=== PATIENT | female | born 1945 | race Caucasian/White ===

== ENCOUNTER 2016-02-29 07:28 | Day surgery (SDC) | payer MEDICARE ==
[2016-02-29] MEDS ORDERED: Lactated Ringers 1,000 ML IV SCH (08:00)
[2016-02-29] MEDS ORDERED: Ak-Dilate OPHTHALMIC*** 0.71 ML, Cyclogyl 1% OPHTH SOL 5 ML 0.71 ML, GATIFLOXACIN 0.5% ... OP ONE ×4 (08:00)
[2016-02-29] MEDS ORDERED: Tetcaine HCl OPHTHALMIC OP ONE ×2 (08:00)
[2016-02-29] MEDS ORDERED: Lactated Ringers 1,000 ML IV ONE (08:19)
[2016-02-29] MEDS ORDERED: Zofran 4 MG/2 ML VIAL IV PRN (09:00)
[2016-02-29] MEDS ORDERED: ACETAZOLAMIDE 250 MG TABLET PO ONE (09:00)
[2016-02-29] MEDS ORDERED: LIDOCAINE HCL 1% AMPUL 5 ML IJ ONE (09:00)
[2016-02-29] MEDS ORDERED: BSS 500 ML, Fortaz/Tazicef 1 GM** 0.2 G IO ONE ×2 (09:00)
[2016-02-29] MEDS ORDERED: Epinephrine Preservative Free 1 MG/ML INTRAOP ONE (09:00)
[2016-02-29] MEDS ORDERED: BETADINE 5% OPHTHALMIC 30 ML OP ONE (09:00)
[2016-02-29] MEDS ORDERED: DIPRIVAN 200 MG/20 ML IV ONE (10:56)
[2016-02-29 11:16] VITALS: BP 154/87; PULSE 77; O2SAT 94
--- NOTE | 2016-02-29 13:13 | OP ---
DATE/TIME OF OPERATION: 02/29/2016 0950 TIME DICTATED: 1107 PREOPERATIVE DIAGNOSIS: Senile cataract of left eye. POSTOPERATIVE DIAGNOSIS: Senile cataract of left eye. SURGEON: Neptali Kathleen MD OPTICAL INSTRUMENT ASSEMBLER: None. OPERATION: Cataract extraction of left eye with an intraocular lens implant. STANDARD __X___ COMPLEX ANESTHESIA: MAC. __X____ Monitored anesthesia care in combination with topical and intra-cameral anesthesia (because of the established specific risk of reflux, arrhythmias, or an anxiety attack associated with ocular manipulation as well as difficulty of the maintenance truck driver to manage such potentially catastrophic events while simultaneously attempting to complete the surgical procedure, it was deemed necessary for the patient's safety to have an anesthesiologist or a nurse gas scrubber operator present during the procedure whenever possible. The anesthesiologist or the nurse gas scrubber operator was utilized to monitor and regulate the intravenous sedation of the patient, so the patient was cooperative, relaxed, and comfortable). Topical anesthesia using Tetracaine eye drops together with intra cameral anesthesia using Lidocaine 1% MPF. The nurse was utilized to monitor the patient. ANESTHESIA PROVIDER: Sanchez Severino CRNA. COMPLICATIONS: None. BLOOD LOSS: None. INDICATIONS: The patient is undergoing cataract surgery in the hopes of eliminating the visual complaints and difficulty. PROCEDURE: After arriving at the facility's outpatient surgery area, an IV was started; the patient was given 5 mg of p.o. Versed. (If an anesthesia provider was not monitoring the patient) The patient was then given topical anesthetic Tetracaine eye drops. A cotton pellet was soaked into a solution of a combination of Zymaxid 0.5%, Javier-Synephrine 2.5% and Ocufen (other drops might have been substituted referenced in the patient's record). The pellet was inserted by the RN into the lower conjunctival cul-de-sac with a sterile forceps and left for 20 minutes. The pellet was then removed by the RN with a sterile forceps before taking the patient to the operating room. The preoperative area nurse identified the patient and marked the correct eye to be operated on. I identified the correct eye to be operated on and marked it appropriately in the outpatient surgery area. The patient was then taken into the operating room. Tetracaine eye drops were installed again in the correct eye. The eyelids and the lashes and the lid margins were scrubbed with Betadine solution. One drop of the diluted Betadine solution was placed in the conjunctival cul-de-sac for 45 seconds and then was irrigated. A drop of Tetracaine Gel was placed in the conjunctival cul-de-sac. The patient's forehead was taped to secure it during the procedure. The patient was monitored. The patient was then draped in the usual way for this procedure. An eye speculum was used to separate the eyelids. The eye was then fixated and a temporal 2.5 mm incision was made in the clear cornea temporally at the limbus. Through the incision, 0.25 cc of 1% non-preserved lidocaine was injected into the anterior chamber for intracameral anesthesia. The anterior chamber was then filled with viscoelastic. The pupil was small. I felt that it would be safer to mechanically dilate the pupil. A Malyugin ring was used at this point which dilated the pupil. That was removed at the end of the procedure prior to aspiration of the viscoelastic from the anterior chamber and posterior to the intraocular lens implant. The cataract had a great amount of cortical changes. That rendered seeing the anterior capsule difficult for a safe performance of an anterior capsulotomy. I injected an air bubble into the anterior chamber. I then injected 1 ML of vision blue solution into the anterior chamber. The vision blue solution was irrigated from the anterior chamber after 30 seconds. The anterior capsule was stained which facilitated performing the anterior capsulotomy safely. After that was completed, a cystotome was introduced into the anterior chamber and a round anterior capsulotomy was performed. The capsule was removed by a forceps. Hydrodissection was next carried utilizing a 25-gauge cannula and balanced salt solution to delineate the cortical material from the capsule and the nucleus from the cortical material. The nucleus was rotated freely into the capsular bag with no difficulty. The phaco tip of the [employer] Phacoemulsifier was introduced into the anterior chamber and two grooves were made into the nucleus 90 degrees apart. Using two spatulas resulted into the nucleus being fractured into four quadrants. The phaco tip was then used to remove each quadrant of the nucleus. Viscoelastic was used during this process to protect the corneal endothelium. Once the entire nucleus was removed, the phaco tip then was removed and the irrigation tip was introduced into the eye and the cortex was removed. The posterior capsule was polished. It was noticed that there was a tear into the posterior capsule with few vitreous strands into the pupil plan. An anterior vitrectomy was performed. A 15.50 diopter, SN60WF, posterior chamber lens implant, was inspected and found to be grossly normal. The implant was inserted into the implant injector cartridge; Viscoelastic again was introduced into the anterior chamber, which filled the capsular bag. The implant injector's cartridge tip was placed at the limbal wound and the posterior chamber implant was released into the capsular bag and rotated appropriately. The implant was found to be into the capsular bag and it was centered. __X___ 0.2 ml of Tri-Moxi was introduced via 27 gauge cannula into the vitreous cavity through the ciliary processes. Viscoelastic was aspirated from the anterior chamber and posterior to the intraocular lens implant from the capsular bag using the irrigating tip. The anterior chamber was irrigated and filled with 5 cc antibiotic solution (500 cc of BSS plus 2 ml of Fortaz 100 mg/ml) ( if patient was not allergic to the medication). The lips of the corneal incision were hydrated using BSS solution. The anterior chamber was checked and found to be water tight. One drop each of antibiotic, steroid and NSAID drops (refer to chart for drops used) were placed in the conjunctival cul-de-sac of the operated eye. Patient tolerated the procedure quite well and left the operating room in satisfactory condition. DISCHARGE SUMMARY: The patient was released in stable condition. The patient and those with the patient were given an instruction sheet as of how to care for the eye after surgery as well as counseling on any abnormal laboratory studies by the postoperative RN. The patient was also given an appointment card for follow-up in the office and is to call immediately for any difficulties including but not limited to pain in the eye, decreased vision, discharge from the eye, headache and or fever. DISCHARGE DIAGNOSIS: Pseudophakia of left eye.
== END 2016-02-29 11:10 | disposition home or self-care (01) ==
LOC: SDC 07:28
PROVIDERS: ATTEND Ophthalmology
PROC: 08RK3JZ Replacement of Left Lens with Synthetic Substitute, Percutaneous Approach (ICD-10-PCS; principal; 2016-02-29)
DX: H25.9 Unspecified age-related cataract (principal); E11.9 Type 2 diabetes mellitus without complications; Z79.4 Long term (current) use of insulin; I10 Essential (primary) hypertension; J44.9 Chronic obstructive pulmonary disease, unspecified; Z85.118 Personal history of other malignant neoplasm of bronchus and lung; M19.90 Unspecified osteoarthritis, unspecified site; E78.00 Pure hypercholesterolemia, unspecified; Z79.899 Other long term (current) drug therapy
CPT/HCPCS: 82962; 66984; C1780; 00142; 99100; J0171; J2704

== ENCOUNTER 2016-05-02 07:14 | Day surgery (SDC) | payer MEDICARE ==
[~2016-05-02 07:14] MED LIST: Lactated Ringers 1,000 ML IV ONE; Lactated Ringers 1,000 ML IV SCH
[2016-05-02] MEDS ORDERED: Lactated Ringers 1,000 ML IV ONE (07:20)
[2016-05-02] MEDS ORDERED: TETRACAINE 0.5% STERI-UNIT SOL OP ONE ×2 (08:00)
[2016-05-02] MEDS ORDERED: Ak-Dilate OPHTHALMIC*** 0.71 ML, Cyclogyl 1% OPHTH SOL 5 ML 0.71 ML, GATIFLOXACIN 0.5% ... OP ONE ×4 (08:00)
[2016-05-02] MEDS ORDERED: Lactated Ringers 1,000 ML IV SCH (08:00)
[2016-05-02] MEDS ORDERED: DIPRIVAN 200 MG/20 ML IV ONE (08:00)
[2016-05-02] MEDS ORDERED: BETADINE 5% OPHTHALMIC 30 ML OP ONE (09:00)
[2016-05-02] MEDS ORDERED: LIDOCAINE HCL 1% AMPUL 5 ML IJ ONE (09:00)
[2016-05-02] MEDS ORDERED: ACETAZOLAMIDE 250 MG TABLET PO ONE (09:00)
[2016-05-02] MEDS ORDERED: Epinephrine Preservative Free 1 MG/ML INTRAOP ONE (09:00)
[2016-05-02] MEDS ORDERED: Zofran 4 MG/2 ML VIAL IV PRN (09:00)
[2016-05-02] MEDS ORDERED: BSS 500 ML, Fortaz/Tazicef 1 GM** 0.2 G IO ONE ×2 (09:00)
[2016-05-02 10:39] VITALS: BP 183/86; PULSE 71; O2SAT 96
--- NOTE | 2016-05-02 13:11 | OP ---
DATE/TIME OF OPERATION: 05/02/2016 0923 TIME DICTATED: 1206 PREOPERATIVE DIAGNOSIS: Senile cataract of right eye. POSTOPERATIVE DIAGNOSIS: Senile cataract of right eye. SURGEON: Neptali Kathleen MD FLEET ADMINISTRATOR: None. OPERATION: Cataract extraction of right eye with an intraocular lens implant STANDARD __X___ COMPLEX ANESTHESIA: MAC. ___X___ Monitored anesthesia care in combination with topical and intra-cameral anesthesia (because of the established specific risk of reflux, arrhythmias, or an anxiety attack associated with ocular manipulation as well as difficulty of the electric razor mechanic to manage such potentially catastrophic events while simultaneously attempting to complete the surgical procedure, it was deemed necessary for the patient's safety to have an anesthesiologist or a nurse medical research tech present during the procedure whenever possible. The anesthesiologist or the nurse medical research tech was utilized to monitor and regulate the intravenous sedation of the patient, so the patient was cooperative, relaxed, and comfortable). Topical anesthesia using Tetracaine eye drops together with intra cameral anesthesia using Lidocaine 1% MPF. The nurse was utilized to monitor the patient. ANESTHESIA PROVIDER: Sanchez Severino CRNA. COMPLICATIONS: None. BLOOD LOSS: None. INDICATIONS: The patient is undergoing cataract surgery in the hopes of eliminating the visual complaints and difficulty. PROCEDURE: After arriving at the facility's outpatient surgery area, an IV was started; the patient was given 5 mg of p.o. Versed. (If an anesthesia provider was not monitoring the patient) The patient was then given topical anesthetic Tetracaine eye drops. A cotton pellet was soaked into a solution of a combination of Zymaxid 0.5%, Javier-Synephrine 2.5% and Ocufen (other drops might have been substituted referenced in the patient's record). The pellet was inserted by the RN into the lower conjunctival cul-de-sac with a sterile forceps and left for 20 minutes. The pellet was then removed by the RN with a sterile forceps before taking the patient to the operating room. The preoperative area nurse identified the patient and marked the correct eye to be operated on. I identified the correct eye to be operated on and marked it appropriately in the outpatient surgery area. The patient was then taken into the operating room. Tetracaine eye drops were installed again in the correct eye. The eyelids and the lashes and the lid margins were scrubbed with Betadine solution. One drop of the diluted Betadine solution was placed in the conjunctival cul-de-sac for 45 seconds and then was irrigated. A drop of Tetracaine Gel was placed in the conjunctival cul-de-sac. The patient's forehead was taped to secure it during the procedure. The patient was monitored. The patient was then draped in the usual way for this procedure. An eye speculum was used to separate the eyelids. The eye was then fixated and a temporal 2.5 mm incision was made in the clear cornea temporally at the limbus. Through the incision, 0.25 cc of 1% non-preserved lidocaine was injected into the anterior chamber for intracameral anesthesia. The anterior chamber was then filled with viscoelastic. The pupil was small. I felt that it would be safer to mechanically dilate the pupil. A Malyugin ring was used at this point which dilated the pupil. That was removed at the end of the procedure prior to aspiration of the viscoelastic from the anterior chamber and posterior to the intraocular lens implant. The cataract had a great amount of cortical changes. That rendered seeing the anterior capsule difficult for a safe performance of an anterior capsulotomy. I injected an air bubble into the anterior chamber. I then injected 1 ML of vision blue solution into the anterior chamber. The vision blue solution was irrigated from the anterior chamber after 30 seconds. The anterior capsule was stained which facilitated performing the anterior capsulotomy safely. After that was completed, a cystotome was introduced into the anterior chamber and a round anterior capsulotomy was performed. The capsule was removed by a forceps. Hydrodissection was next carried utilizing a 25-gauge cannula and balanced salt solution to delineate the cortical material from the capsule and the nucleus from the cortical material. The nucleus was rotated freely into the capsular bag with no difficulty. The phaco tip of the [employer] Phacoemulsifier was introduced into the anterior chamber and two grooves were made into the nucleus 90 degrees apart. Using two spatulas resulted into the nucleus being fractured into four quadrants. The phaco tip was then used to remove each quadrant of the nucleus. Viscoelastic was used during this process to protect the corneal endothelium. Once the entire nucleus was removed, the phaco tip then was removed and the irrigation tip was introduced into the eye and the cortex was removed. The posterior capsule was polished. It was noticed that there was a tear into the posterior capsule with few vitreous strands into the pupil plan. An anterior vitrectomy was performed. A 16.00 diopter, SN60WF, posterior chamber lens implant, was inspected and found to be grossly normal. The implant was inserted into the implant injector cartridge; Viscoelastic again was introduced into the anterior chamber, which filled the capsular bag. The implant injector's cartridge tip was placed at the limbal wound and the posterior chamber implant was released into the capsular bag and rotated appropriately. The implant was found to be into the capsular bag and it was centered. ___X__ 0.2 ml of Tri-Moxi was introduced via 27 gauge cannula into the vitreous cavity through the ciliary processes. Viscoelastic was aspirated from the anterior chamber and posterior to the intraocular lens implant from the capsular bag using the irrigating tip. The anterior chamber was irrigated and filled with 5 cc antibiotic solution (500 cc of BSS plus 2 ml of Fortaz 100 mg/ml) ( if patient was not allergic to the medication). The lips of the corneal incision were hydrated using BSS solution. The anterior chamber was checked and found to be water tight. One drop each of antibiotic, steroid and NSAID drops (refer to chart for drops used) were placed in the conjunctival cul-de-sac of the operated eye. Patient tolerated the procedure quite well and left the operating room in satisfactory condition. DISCHARGE SUMMARY: The patient was released in stable condition. The patient and those with the patient were given an instruction sheet as of how to care for the eye after surgery as well as counseling on any abnormal laboratory studies by the postoperative RN. The patient was also given an appointment card for follow-up in the office and is to call immediately for any difficulties including but not limited to pain in the eye, decreased vision, discharge from the eye, headache and or fever. DISCHARGE DIAGNOSIS: Pseudophakia of right eye.
== END 2016-05-02 10:46 | disposition home or self-care (01) ==
LOC: SDC 07:14
PROVIDERS: ATTEND Ophthalmology
PROC: 08RJ3JZ Replacement of Right Lens with Synthetic Substitute, Percutaneous Approach (ICD-10-PCS; principal; 2016-05-02)
DX: H25.9 Unspecified age-related cataract (principal); E78.00 Pure hypercholesterolemia, unspecified; E11.9 Type 2 diabetes mellitus without complications; Z79.4 Long term (current) use of insulin; J44.9 Chronic obstructive pulmonary disease, unspecified; M19.90 Unspecified osteoarthritis, unspecified site; I10 Essential (primary) hypertension; Z79.899 Other long term (current) drug therapy
CPT/HCPCS: 66984; C1780; 00142; 99100; J0171; J2704; A9270-GY

== ENCOUNTER 2019-03-29 14:30 | Emergency (ER) | payer MEDICARE ==
[2019-03-29] MEDS ORDERED: Hydromorphone 1 mg/ml Ampule IV ONE (14:34)
[2019-03-29] MEDS ORDERED: Sodium Chloride 0.9% 1000 ML 1,000 ML ONE (14:37)
[2019-03-29] MEDS ORDERED: Hydromorphone 1 mg/ml Ampule ONE (14:37)
[2019-03-29] MEDS ORDERED: Sodium Chloride 0.9% 1000 ML 1,000 ML IV SCH (14:45)
--- NOTE | 2019-03-29 15:18 | ERPHSYRPT ---
- History of Present Illness Time Seen by Provider: 03/29/19 14:40 Source: patient Patient Subjective Stated Complaint: Pt was walking with a walker and fell and landed on her left shoulder which appears to be dislocated Triage Nursing Assessment: Pt brought to the ER by EMS, hypertensive, rates pain 09/21, left shoulder appears dislocated, denies any other injuries, denies losing consciousness, pulses normal, capillary refill normal Physician History: Patient is a 73-year-old female who was walking with a walker at hallway and fell to the left injuring her left shoulder Occurred: just prior to arrival Reason for Fall: unknown Injuries/Pain Location: upper extremity (Left shoulder) Loss of Consciousness: no loss of consciousness Allergies/Adverse Reactions: No Known Drug Allergies Allergy (Verified 03/29/19 14:39) Home Medications: Albuterol Sulfate [Proair Hfa] 2 puff IH Q4-6HPRN PRN 12/01/15 [History] Atenolol 50 mg [Tenormin 50 mg] 100 mg PO DAILY 12/01/15 [History] Celecoxib 100 mg [celeBREX 100 MG] 200 mg PO DAILY 12/01/15 [History] Metformin HCl 1000 mg [Glucophage 1000 MG] 1,000 mg PO BID 12/01/15 [History] Simvastatin 20 mg PO QPM 12/01/15 [History] Fluticasone/Vilanterol [Breo Ellipta 100-25 Mcg INH] 2 puff IH QID 02/29/16 [ History] Alendronate Sodium 70 mg PO WEEKLY 03/29/19 [History] Gabapentin 600 mg PO BID 03/29/19 [History] Hydrocodone Bit/Acetaminophen [Hydrocodon-Acetaminophn 10-325] 1 tab PO QID [History] Hx Tetanus, Diphtheria Vaccination/Date Given: No Hx Influenza Vaccination/Date Given: No Hx Pneumococcal Vaccination/Date Given: Yes - Review of Systems Constitutional: No Fever, No Chills Eyes: No Symptoms Ears, Nose, & Throat: No Symptoms Respiratory: No Cough, No Dyspnea Cardiac: No Chest Pain, No Edema, No Syncope Abdominal/Gastrointestinal: No Abdominal Pain, No Nausea, No Vomiting, No Diarrhea Genitourinary Symptoms: No Dysuria Musculoskeletal: Joint Pain, Joint Swelling, No Back Pain, No Neck Pain Skin: No Rash Neurological: No Dizziness, No Focal Weakness, No Sensory Changes Psychological: No Symptoms Endocrine: No Symptoms All Other Systems: Reviewed and Negative - Past Medical History Pertinent Past Medical History: Yes Neurological History: Migraines ENT History: Cataracts Cardiac History: High Cholesterol, Hypertension Respiratory History: COPD, Lung Cancer Endocrine Medical History: Diabetes Type II Musculoskeletal History: Degenerative Disk Disease, Osteoarthritis GI Medical History: No Pertinent History History: No Pertinent History Psycho-Social History: No Pertinent History Female Reproductive Disorders: No Pertinent History Other Medical History: chronic back pain - Past Surgical History Past Surgical History: Yes Neuro Surgical History: No Pertinent History Cardiac: No Pertinent History Respiratory: No Pertinent History Gastrointestinal: No Pertinent History Genitourinary: No Pertinent History Musculoskeletal: Other Female Surgical History: No Pertinent History Other Surgical History: benign tumor removed from the back, right lung bx,right lung cancer hx - Social History Smoking Status: Current every day smoker Exposure to second hand smoke: Yes Drug Use: none Patient Lives Alone: Yes - Female History Hx Now: No - Nursing Vital Signs Nursing Vital Signs: Initial Vital Signs Temperature 97.3 F 03/29/19 14:31 Pulse Rate 59 L 03/29/19 14:31 Blood Pressure 164/70 03/29/19 14:31 O2 Sat by Pulse Oximetry 96 03/29/19 14:31 Pain Scale Pain Intensity 8 - Favian Coma Score Best Eye Response ([place]): (4) open spontaneously Best Verbal Response (Favian): (5) oriented Best Motor Response (Favian): (6) obeys commands Favian Total: 15 - Physical Exam Extremity Exam: deformities, pain with movement Peripheral Pulses: carotid (R): 2+, carotid (L): 2+ Neurologic Exam: alert, oriented x 3, cooperative, sensation nml, No motor deficits SpO2 Interpretation: normal SpO2: 96 O2 Delivery: Room Air - Course Nursing assessment & vital signs reviewed: Yes Ordered Tests: Active Orders 24 hr Category Date Time Status IV Insertion STAT Care 03/29/19 14:35 Active SHOULDER Stat Exams 03/29/19 14:47 Taken Medication Summary Generic Name Dose Route Start Last Admin Trade Name Freq PRN Reason Stop Dose Admin Sodium Chloride 1,000 mls @ 100 mls/hr 03/29/19 14:45 03/29/19 14:39 Sodium Chloride 0.9% 1000 Ml IV 04/28/19 14:44 100 mls/hr .Q10H SHITAL Administration Discontinued Medications Generic Name Dose Route Start Last Admin Trade Name Freq PRN Reason Stop Dose Admin Hydromorphone HCl 0.5 mg 03/29/19 14:34 03/29/19 14:39 Hydromorphone 1 Mg/Ml Ampule IV 03/29/19 14:35 0.5 mg STAT ONE Administration Hydromorphone HCl Confirm 03/29/19 14:37 Hydromorphone 1 Mg/Ml Ampule Administered 03/29/19 14:38 Dose 1 mg .ROUTE .STK-MED ONE - Progress Progress: unchanged - Departure Departure Disposition: Transfer (There is a fracture of the proximal left humerus which is overriding comminuted and displaced patient is being transferred to [facility] since we have no orthopedic service available. Left shoulder) Clinical Impression: Shoulder fracture, left Condition: Stable Critical Care Time: No Referrals: COY BROCK MD [Primary Care Provider] -
[2019-03-29 15:23] VITALS: BP 159/63; PULSE 60; O2SAT 98
--- NOTE | 2019-03-29 18:16 | XRAY ---
Indication: Pain/deformity following fall. Comparison: None 3 views of the left shoulder demonstrates comminuted proximal humeral shaft fracture with bayonet apposition/alignment and soft tissue swelling. Elsewhere mild osteopenia and mild multilevel degenerative spondylosis. No other bony, articular, or soft tissue abnormalities.
== END 2019-03-29 15:45 | disposition short-term general hospital (02) ==
LOC: ED 14:30
DX: S42.92XA Fracture of left shoulder girdle, part unspecified, initial encounter for closed fracture (principal); W17.89XA Other fall from one level to another, initial encounter; Z79.899 Other long term (current) drug therapy; Z79.891 Long term (current) use of opiate analgesic; E78.00 Pure hypercholesterolemia, unspecified; I10 Essential (primary) hypertension; E11.9 Type 2 diabetes mellitus without complications
CPT/HCPCS: 36000; 73030; 96360; 96374; 99285; J1170

== ENCOUNTER 2019-08-22 17:37 | Emergency (ER) | payer MEDICARE ==
[2011-10-18 09:50] VITALS: BP 176/98
[2019-08-22] MEDS ORDERED: ATROPINE SULFATE 1MG SYR ABBOJECT IV ONE (17:38)
[2019-08-22] MEDS ORDERED: EPINEPHRINE ABBOJECT 1 MG IV ONE ×2 (17:38)
[2019-08-22 17:56] VITALS: O2SAT 98
[2019-08-22 17:59] LABS: Hematocrit 35.5 % (35-47); Hemoglobin 10.4 gm/dl (12.0-16.0); Mean Corpuscular Hemoglobin 25.2 pg (26-32); Mean Corpuscular Hgb Concent. 29.3 g/dl (32-36); Mean Platelet Volume 9.5 fl (7.5-11.0); Platelet Count 384 K/mm3 (150-450); Red Blood Count 4.13 M/mm3 (4.1-5.4); Red Cell Distribution Width 18.3 % (11.5-14.0)
--- NOTE | 2019-08-22 17:59 | ERPHSYRPT ---
- History of Present Illness Time Seen by Provider: 08/22/19 17:40 Source: family, EMS Exam Limitations: clinical condition Physician History: This is a patient in her 70s that was brought in by EMS in cardiopulmonary arrest. Patient was awake approximately 30 minutes prior to arrival to the emergency department. Patient has history of cardiopulmonary disease. She has pain issues and had a fentanyl patch in place. Approximately 30 minutes prior to the arrival to this emergency department, patient took Vicodin for pain. She then became unresponsive. EMS arrived to the patient's home where the patient was found to be unresponsive, without spontaneous heart tones, without spontaneous breath sounds and no pulse. CPR was started immediately and orotracheally intubated at the scene. Patient was asystole throughout the EMS transport. Patient was given 3 rounds of epinephrine and continuous CPR. Patient arrives to the emergency department unresponsive, pupils were dilated and fixed, no spontaneous heart tones, no spontaneous breath sounds and no pulse. Upon arrival to the emergency department we do not have significant amount of information on this patient. Timing/Duration: today Activities at Onset: none Severity of Pain-Max: none Severity of Pain-Current: none Modifying Factors: Improves With: nothing Nitro Today/Relief: no nitro taken today Aspirin Treatment Today: no aspirin today Associated Symptoms: other (Patient unresponsive) Allergies/Adverse Reactions: No Known Drug Allergies Allergy (Unverified 08/22/19 18:19) Home Medications: Unobtainable 08/22/19 [History] Travel Risk - International Travel Have you traveled outside of the country in past 3 weeks: No - Coronavirus Screening Are you exhibiting any of the following symptoms?: No Close contact with a COVID-19 positive Pt in past 14-21 Days: No - Review of Systems Constitutional: Other (Patient unresponsive) Eyes: Other (Patient unresponsive) Respiratory: Other (Patient unresponsive) Cardiac: Other Abdominal/Gastrointestinal: Other (Patient unresponsive) Genitourinary Symptoms: Other (Patient unresponsive) Musculoskeletal: Other Skin: Other (Patient unresponsive patient unresponsive) Neurological: Other Psychological: Other (Patient unresponsive patient unresponsive) Endocrine: Other (Patient unresponsive) Hematologic/Lymphatic: Other (Patient unresponsive) Immunological/Allergic: Other (Patient unresponsive this because of think he is or things that the patient after but) All Other Systems: Unable due to condition - Past Medical History Pertinent Past Medical History: Yes - Past Surgical History Past Surgical History: Yes - Nursing Vital Signs Nursing Vital Signs: Initial Vital Signs O2 Sat by Pulse Oximetry 98 08/22/19 17:55 - Physical Exam General Appearance: cachetic, other (And unresponsive) Eye Exam: other (Pupils fixed and dilated without response to light examination) Ears, Nose, Throat Exam: other (Patient orotracheally intubated) Neck Exam: normal inspection, non-tender, supple, full range of motion Respiratory Exam: other (No spontaneous breath sounds) Cardiovascular Exam: other (No spontaneous heart tones) Gastrointestinal/Abdomen Exam: soft, other (Quiet) Pelvic Exam: not done Rectal Exam: not done Back Exam: normal inspection, normal range of motion, No CVA tenderness, No vertebral tenderness Extremity Exam: pelvis stable Neurologic Exam: other (Patient unresponsive) Skin Exam: mottled Lymphatic Exam: No adenopathy SpO2 Interpretation: hypoxic O2 Delivery: Ambu-Bag - Course Nursing assessment & vital signs reviewed: Yes EKG Interpreted by Me: RATE ([id number]), Sinus Tach, Right Bundle Branch Block, Non- specific ST Changes, Other (Ectopic atrial tachycardia, unifocal. There is multiple ventricular premature complexes.) Ordered Tests: Active Orders 24 hr Category Date Time Status CO2 Monitoring STAT Care 08/22/19 17:48 Active Fixed Wing Pilot STAT Care 08/22/19 17:49 Active Catheter-[place] Mix STAT Care 08/22/19 17:51 Active EKG-ER Only STAT Care 08/22/19 17:48 Active Gastric Tube Insertion STAT Care 08/22/19 18:03 Active Pulse Oximetry (ED) STAT Care 08/22/19 17:48 Active CHEST 1 VIEW (PORTABLE) Stat Exams 08/22/19 17:49 Taken ABG [ARTERIAL BLOOD GASES] Stat Lab 08/22/19 19:05 Completed ARTERIAL BLOOD GASES Urgent Lab 08/22/19 18:02 Completed CBC W DIFF Stat Lab 08/22/19 17:40 Completed CMP Stat Lab 08/22/19 17:40 Completed CULTURE,URINE Stat Lab 08/22/19 19:17 Received Lactic Acid Urgent Lab 08/22/19 18:02 Completed Manual Differential NC Stat Lab 08/22/19 17:40 Completed Sputum Culture [CULTURE,SPUTUM] Stat Lab 08/22/19 Uncollected TROPONIN Q3H Lab 08/22/19 18:08 Completed TROPONIN Q3H Lab 08/22/19 21:00 Ordered UA W/RFX UR CULTURE Stat Lab 08/22/19 19:17 Received Urine Triage Profile Stat Lab 08/22/19 19:17 Received Standby STAT RT 08/22/19 18:19 Completed Medication Summary Generic Name Dose Route Start Last Admin Trade Name Ashkan PRN Reason Stop Dose Admin Norepinephrine 4,000 mcg/ 504 mls @ 37.8 mls/hr 08/22/19 18:14 08/22/19 18:54 Dextrose IV 09/21/19 18:13 5 mcg/min .[id number] PRN 37.8 mls/hr SEVERE HYPOTENSION Administration Protocol 5 MCG/MIN Midazolam HCl 50 mg/ Sodium 250 mls @ 10 mls/hr 08/22/19 18:55 Chloride IV 09/21/19 18:54 .Q24H PRN SEDATION Protocol 2 MG/HR Discontinued Medications Generic Name Dose Route Start Last Admin Trade Name Ashkan PRN Reason Stop Dose Admin Calcium Gluconate Confirm 08/22/19 18:27 Calcium Gluconate 10% 1000 Mg Administered 08/22/19 18:28 Dose 1,000 mg IV .STK-MED ONE Dextrose 50 ml 08/22/19 18:57 D50w 50 Ml Abboject IV 08/22/19 18:58 STAT ONE Dextrose Confirm 08/22/19 19:00 D50w 50 Ml Abboject Administered 08/22/19 19:01 Dose 50 ml IV .STK-MED ONE Sodium Chloride Confirm 08/22/19 18:05 Sodium Chloride 0.9% 1000 Ml Administered 08/22/19 18:06 Dose 1,000 mls @ ud .ROUTE .STK-MED ONE Meropenem 1 g/ Sodium Chloride 100 mls @ 200 mls/hr 08/22/19 18:16 08/22/19 18:54 IV 08/22/19 18:45 200 mls/hr STAT ONE Administration Sodium Chloride Confirm 08/22/19 18:33 Sodium Chloride 100ml Mini-Bag Plus Administered 08/22/19 18:34 Dose 100 mls @ ud IV .STK-MED ONE Sodium Chloride Confirm 08/22/19 18:59 Sodium Chloride 0.9% 250 Ml Administered 08/22/19 19:00 Dose 250 mls @ ud IV .STK-MED ONE Insulin Human Regular 4 unit 08/22/19 18:57 Humulin R IV 08/22/19 18:58 STAT ONE Insulin Human Regular Confirm 08/22/19 18:59 Humulin R Administered 08/22/19 19:00 Dose 4 unit .ROUTE .STK-MED ONE Meropenem Confirm 08/22/19 18:33 Merrem 1 Gm Administered 08/22/19 18:34 Dose 1 g IV .STK-MED ONE Midazolam HCl 2 mg 08/22/19 18:55 Versed 2 Mg/2 Ml Injection IV 08/22/19 18:56 1XONLY ONE Midazolam HCl Confirm 08/22/19 18:59 Versed 50 Mg/ 10 Ml Mdv Administered 08/22/19 19:00 Dose 50 mg .ROUTE .STK-MED ONE Sodium Bicarbonate 50 meq 08/22/19 18:14 08/22/19 18:54 Sodium Bicarbonate 50 Meq/50 Ml Abboject IV 08/22/19 18:15 50 meq STAT ONE Administration Sodium Bicarbonate Confirm 08/22/19 18:39 Sodium Bicarbonate 50 Meq/50 Ml Abboject Administered 08/22/19 18:40 Dose 50 meq IV .STK-MED ONE Lab/Rad Data: Laboratory Result Diagrams 08/22/19 17:40 08/22/19 17:40 Laboratory Results 08/22/19 08/22/19 08/22/19 Range/Units 19:05 18:08 18:02 WBC (4.0-10.5) K/mm3 RBC (4.1-5.4) M/mm3 Hgb (12.0-16.0) gm/dl Hct (35-47) % MCV (78-100) fl MCH (26-32) pg MCHC (32-36) g/dl RDW (11.5-14.0) % Plt Count (150-450) K/mm3 MPV (7.5-11.0) fl Segmented Neutrophils (36.0-66.0) % Lymphocytes (Manual) (24-44) % Monocytes (Manual) (0.0-12.0) % Platelet Estimate (NORMAL) RBC Morphology Anisocytosis Puncture Site RIGHT RADIAL VBG pCO2 83 H* 43 (35-45) mmHg pO2 194 H* 76 (75-100) mmHg Base Excess -6.5 L -12.4 L (-2.0-2.0) O2 Saturation 98.0 87.9 L (94-100) g/dF ABG pH 7.09 L* 7.17 L* (7.35-7.45) ABG HCO3 25.2 15.7 L* (22-28) ABG O2 Sat (Measured) 100.0 97.2 (95-100) % Sajan Test NOT APPLICABLE NOT APPLICABLE A-a Gradient 415 583 a/A Ratio 0.32 0.12 Hemoglobin 9.9 10.5 Carboxyhemoglobin 1.4 9.1 H* (0.0-6.9) % THgb Methemoglobin 0.6 L 0.5 L (1.4-1.5) % Temperature 37.0 37.0 C POC O2 Flow Rate 100 100 % Vent Mode A/C A/C Tidal Volume 400 400 cc PEEP 3.0 3.0 cmH2O Sodium (137-145) mmol/L Potassium 5.0 5.8 H (3.5-5.1) mmol/L Chloride (98-107) mmol/L Carbon Dioxide (22-30) mmol/L Anion Gap (5-15) MEQ/L BUN (7-17) mg/dL Creatinine (0.52-1.04) mg/dL Estimated GFR ML/MIN Glucose (74-106) mg/dL Lactic Acid 7.0 H (0.4-2.0) Calcium (8.4-10.2) mg/dL Total Bilirubin (0.2-1.3) mg/dL AST (14-36) U/L ALT (0-35) U/L Alkaline Phosphatase (38-126) U/L Troponin I 0.686 H* (0.000-0.034) ng/mL Serum Total Protein (6.3-8.2) g/dL Albumin (3.5-5.0) g/dL 08/22/19 08/22/19 Range/Units 17:40 17:40 WBC 29.6 H* (4.0-10.5) K/mm3 RBC 4.13 (4.1-5.4) M/mm3 Hgb 10.4 L (12.0-16.0) gm/dl Hct 35.5 (35-47) % MCV 86.0 (78-100) fl MCH 25.2 L (26-32) pg MCHC 29.3 L (32-36) g/dl RDW 18.3 H (11.5-14.0) % Plt Count 384 (150-450) K/mm3 MPV 9.5 (7.5-11.0) fl Segmented Neutrophils 91 H (36.0-66.0) % Lymphocytes (Manual) 6 L (24-44) % Monocytes (Manual) 3 (0.0-12.0) % Platelet Estimate NORMAL (NORMAL) RBC Morphology ABNORMAL Anisocytosis 1+ Puncture Site pCO2 (35-45) mmHg pO2 (75-100) mmHg Base Excess (-2.0-2.0) O2 Saturation (94-100) g/dF ABG pH (7.35-7.45) ABG HCO3 (22-28) ABG O2 Sat (Measured) (95-100) % Sajan Test A-a Gradient a/A Ratio Hemoglobin Carboxyhemoglobin (0.0-6.9) % THgb Methemoglobin (1.4-1.5) % Temperature C POC O2 Flow Rate % Vent Mode Tidal Volume cc PEEP cmH2O Sodium 132 L (137-145) mmol/L Potassium 7.1 H* (3.5-5.1) mmol/L Chloride 94 L (98-107) mmol/L Carbon Dioxide 22 (22-30) mmol/L Anion Gap 22.8 H (5-15) MEQ/L BUN 69 H (7-17) mg/dL Creatinine 1.88 H (0.52-1.04) mg/dL Estimated GFR 27.7 ML/MIN Glucose 165 H (74-106) mg/dL Lactic Acid (0.4-2.0) Calcium 9.8 (8.4-10.2) mg/dL Total Bilirubin 0.50 (0.2-1.3) mg/dL AST 34 (14-36) U/L ALT 17 (0-35) U/L Alkaline Phosphatase 89 (38-126) U/L Troponin I (0.000-0.034) ng/mL Serum Total Protein 7.2 (6.3-8.2) g/dL Albumin 3.3 L (3.5-5.0) g/dL - Progress Progress: improved Air Movement: fair Progress Note: 08/22/19 18:45 Second EKG at 5:54 PM after 1 amp of bicarb and 2 rounds of epinephrine intravenously, heart rate is 124 still in sinus tachycardia. Persistent ventricular premature complexes. There is right bundle april block. Third EKG at 5:59 PM heart rate 139 still with sinus tachycardia right bundle branch block persists. There appears to be ST elevation in leads II and III. The patient has received a third intravenous epinephrine and a second intravenous bicarb Fourth EKG after a total of three 1 mg intravenous epinephrine, 2 A of bicarb, 10 mL of calcium gluconate, 2 L of intravenous cold normal saline and Levophed 8 mics intravenously the patient's heart rate is 104 there is atrial fibrillation with a right bundle branch block. There is possibly acute anterior infarct present. Medical decision making: This patient was on hospice for pain control per family friend. This family friend states that the patient is on morphine, Vicodin and fentanyl patch. In the last 2 or 3 days the patient has not been tracking well. The patient has right lung cancer that is significant. The CAT scan of the chest dated May 09, 2016 showed a very large right-sided lung mass with presumed lung cancer. 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 No evidence of left-sided infiltrate. Her friend, who administers her medication, states that she also has an adrenal mass that her physicians were in the process of starting work-up for. The patient was hypotensive and she has received cold fluids post code arrest protocol. She has a potassium of 7.1 and we have given the patient sodium bicarb calcium gluconate and fluid. We will give an amp of D50 as well. The CODE STATUS is still unknown. She has no known family. She has a good friend who we spoke briefly to to obtain some health information but she is not the power of trust and estates attorney. Patient has a history of significant COPD and is diabetic. She is on Celebrex simvastatin [place], fentanyl patch and morphine. Our plan is to stabilize her and then transfer her to [facility]. Fifth EKG was performed at 649pm: Heart rate is 92 patient is in sinus rhythm there is right bundle branch block and fascicular block on the left side. There is resolution of the elevation of the ST segment in the anterior leads. Okay so put on a Versed drip 08/22/19 19:[address] Jara in the emergency department at [facility]. I reviewed the patient history, condition, laboratory results, EKG results and results of the patient's chest x-ray. The patient is now stabilized reasonably enough to transport this patient to Dr. Jara. He accepts the patient in transfer. Blood Culture(s) Obtained: No Antibiotics given: Yes Counseled pt/family regarding: diagnosis - Departure Departure Disposition: Transfer Clinical Impression: Cardiopulmonary arrest with successful resuscitation, Hyperkalemia, Leukocytosis, Sepsis, Elevated troponin Condition: Critical Critical Care Time: Yes Critical Care Time(excluding separately billable procedures): Critical 75-104 mins Referrals: COY BROCK MD [Primary Care Provider] -
[2019-08-22] MEDS ORDERED: Sodium Chloride 0.9% 1000 ML 1,000 ML ONE (18:05)
[2019-08-22 18:10] LABS: White Blood Count 29.6 K/mm3 (4.0-10.5)
[2019-08-22 18:10] LABS: A-aADO2 583; ABG HEMOGLOBIN 10.5; ABG POTASSIUM 5.8 (3.5-5.1); ARTERIAL BLD GAS O2 SATURATION 97.2 % (95-100); ARTERIAL BLOOD GAS BASE EXCESS -12.4 (-2.0-2.0); ARTERIAL BLOOD GAS FIO2 100 %; ARTERIAL BLOOD GAS PCO2 43 mmHg (35-45); ARTERIAL BLOOD GAS PO2 76 mmHg (75-100); ARTERIAL BLOOD GAS VENT MODE A/C; HCO3- 15.7 (22-28); HGB O2 SAT 87.9 g/dF (94-100); Methhemoglobin 0.5 % (1.4-1.5); paO2 pAO1 0.12
[2019-08-22 18:11] LABS: ABG SITE VBG; ARTERIAL BLOOD GAS pH 7.17 (7.35-7.45); CARBOXYHEMOGLOBIN 9.1 % THgb (0.0-6.9)
[2019-08-22] MEDS ORDERED: LEVOPHED 4 MG/4 ML 4,000 MCG in Dextrose 5%/Water IV Soln. 500 ML 500 ML IV PRN (18:14)
[2019-08-22] MEDS ORDERED: SODIUM BICARBONATE 50 MEQ/50 ML ABBOJECT IV ONE ×2 (18:14→18:39)
[2019-08-22] MEDS ORDERED: Merrem 1 GM 1 G in Sodium Chloride 100ML MINI-BAG PLUS 100 ML IV ONE (18:16)
[2019-08-22 18:22] LABS: ALBUMIN 3.3 g/dL (3.5-5.0); ANION GAP 22.8 MEQ/L (5-15); BILIRUBIN,TOTAL 0.5 mg/dL (0.2-1.3); Calcium 9.8 mg/dL (8.4-10.2); Creatinine 1 1.88 mg/dL (0.52-1.04); Total Protein 7.2 g/dL (6.3-8.2)
[2019-08-22 18:27] LABS: Potassium 7.1 mmol/L (3.5-5.1)
[2019-08-22] MEDS ORDERED: Calcium Gluconate 10% 1000 MG IV ONE (18:27)
[2019-08-22] MEDS ORDERED: Merrem 1 GM IV ONE (18:33)
[2019-08-22] MEDS ORDERED: Sodium Chloride 100ML MINI-BAG PLUS 100 ML IV ONE (18:33)
[2019-08-22 18:47] LABS: Lymphocytes 6 % (24-44); Monocyte 3 % (0.0-12.0); Neutrophils 91 % (36.0-66.0); Total Cells Counted 100
[2019-08-22 18:50] LABS: Platelet Estimate NORMAL (NORMAL)
[2019-08-22 18:51] LABS: ANISOCYTOSIS 1+
[2019-08-22] MEDS ORDERED: Versed 2 MG/2 ML Injection IV ONE (18:55)
[2019-08-22] MEDS ORDERED: Versed 50 MG/ 10 Ml MDV*** 50 MG in Sodium Chloride 0.9% 250 ML 240 ML IV PRN (18:55)
[2019-08-22] MEDS ORDERED: D50W 50 ml Abboject IV ONE ×2 (18:57→19:00)
[2019-08-22] MEDS ORDERED: HUMULIN R IV ONE (18:57)
[2019-08-22] MEDS ORDERED: Sodium Chloride 0.9% 250 ML 250 ML IV ONE (18:59)
[2019-08-22] MEDS ORDERED: Versed 50 MG/ 10 Ml MDV ONE (18:59)
[2019-08-22] MEDS ORDERED: HUMULIN R ONE (18:59)
[2019-08-22 19:17] LABS: A-aADO2 415; ABG HEMOGLOBIN 9.9; ARTERIAL BLOOD GAS BASE EXCESS -6.5 (-2.0-2.0); ARTERIAL BLOOD GAS FIO2 100 %; ARTERIAL BLOOD GAS PO2 194 mmHg (75-100); ARTERIAL BLOOD GAS VENT MODE A/C; CARBOXYHEMOGLOBIN 1.4 % THgb (0.0-6.9); HCO3- 25.2 (22-28); Methhemoglobin 0.6 % (1.4-1.5); paO2 pAO1 0.32
[2019-08-22 19:18] LABS: ABG SITE RIGHT RADIAL; ARTERIAL BLOOD GAS PCO2 83 mmHg (35-45); ARTERIAL BLOOD GAS pH 7.09 (7.35-7.45)
[2019-08-22 19:29] LABS: Appearance TURBID (CLEAR); Bacteria MANY /HPF (NEGATIVE); Bilirubin NEGATIVE (NEGATIVE); Blood SMALL Ery/ul (0-5); Epithelial Cells RARE /HPF (FEW); Glucose NEGATIVE (NEGATIVE); Ketones NEGATIVE (NEGATIVE); Leukocyte Esterase MODERATE (NEGATIVE); Mucus SLIGHT /HPF (NEGATIVE); Nitrite NEGATIVE (NEGATIVE); Non-Squamous Epithelial Cells RARE /HPF (FEW); Protein,Urine Dip 30 (Negative); RBC 26-50 /HPF (0-2); Specific Gravity 1.021 (1.005-1.025); Urobilinogen NEGATIVE mg/dL (0-1); WBC >100 /HPF (0-5)
[2019-08-22 19:37] LABS: Amphetamine,Urine NEGATIVE (NEGATIVE); Barbiturate,Urine NEGATIVE (NEGATIVE); Benzodiazepine,Urine NEGATIVE (NEGATIVE); Cocaine,Urine NEGATIVE (NEGATIVE); Methadone,Urine NEGATIVE (NEGATIVE); Opiate,Urine POSITIVE (NEGATIVE); PCP,Urine NEGATIVE (NEGATIVE); THC,Urine NEGATIVE (NEGATIVE)
[2019-08-22 19:46] LABS: ANION GAP 18.2 MEQ/L (5-15); Calcium 8.8 mg/dL (8.4-10.2); Creatinine 1 1.99 mg/dL (0.52-1.04); Potassium 5.4 mmol/L (3.5-5.1)
--- NOTE | 2019-08-22 22:39 | XRAY ---
Indication: Tube placement. Code. Chest pain. Comparison: April 09, 2018. More recent CT chest July 08, 2019. Portable chest demonstrates new endotracheal tube tip 5 cm above den[place]. New near complete opacification right hemithorax presumed from CT proven right lower lobe mass and postobstructive atelectasis with mild mediastinal shift to the right. Remaining visualized heart and left lung unremarkable. Comment: Preliminary interpretation was made by [facility]. No critical discrepancy.
== END 2019-08-22 20:03 | disposition short-term general hospital (02) ==
LOC: ED 17:37 → MERGE 17:37 → ED 20:03
DX: I46.9 Cardiac arrest, cause unspecified (principal); E87.5 Hyperkalemia; D72.829 Elevated white blood cell count, unspecified; A41.89 Other specified sepsis; R79.89 Other specified abnormal findings of blood chemistry; C34.91 Malignant neoplasm of unspecified part of right bronchus or lung; Z79.899 Other long term (current) drug therapy; E11.9 Type 2 diabetes mellitus without complications; J44.9 Chronic obstructive pulmonary disease, unspecified
CPT/HCPCS: 36000; 36415; 36600; 51702; 71045; 80048; 80053; 80307; 81001; 82375; 82803; 82962; 83605; 84484; 85025; 87077; 87086; 87186; 93005; 93041; 94002; 94760; 94799; 96365; 96367; 96368; 96374; 96375; 99285; 99291; 99292; J0171; J0461; J0610; J1815; J2250